=== PATIENT | female | born 1950 | race Caucasian/White ===

== ENCOUNTER 2021-07-31 13:16 | Inpatient (IN) | payer MEDICARE, BC ==
[~2021-07-31] VITALS: Ht 167.6 cm; Wt 59.4 kg
[2021-07-31] MEDS ORDERED: LORAZEPAM 2 MG/1 ML VIAL ONE ×2 (13:28→13:44)
[2021-07-31] MEDS ORDERED: LORAZEPAM 2 MG/1 ML VIAL IM ONE (13:45)
[2021-07-31 13:54] LABS: HEMATOCRIT 44.6 % (31.2-41.9); MEAN CORPUSCULAR HEMOGLOBIN 32.5 uug (24.7-32.8); MEAN CORPUSCULAR VOLUME 97.1 fL (75.5-95.3); PLATELET COUNT (AUTO) 363 K/uL (179-408)
[2021-07-31 14:02] LABS: ETHANOL < 3 MG/DL (0-0)
[2021-07-31 14:06] LABS: ALANINE AMINOTRANSFERASE 19 U/L (14-59); ALKALINE PHOSPHATASE 114 U/L (50-136); ASPARTATE AMINOTRANSFERASE 18 U/L (15-37); BILIRUBIN,DIRECT 0.1 mg/dL (0.0-0.2); BILIRUBIN,TOTAL 0.4 mg/dL (0.2-1.0); CARBON DIOXIDE 24 mmol/L (21-32); CHLORIDE 100 mmol/L (98-107); CREATININE 0.8 mg/dL (0.6-1.3); GLUCOSE 110 mg/dL (74-106); POTASSIUM 3.9 mmol/L (3.5-5.1); TOTAL PROTEIN, SERUM 8.1 g/dL (6.4-8.2); UREA NITROGEN, BLOOD 25 mg/dL (7-18)
[2021-07-31 14:08] LABS: ACETAMINOPHEN < 2.0 ug/mL (10-30)
--- NOTE | 2021-07-31 14:14 | NUR ---
PT'S BEHAVIOR AT THIS TIME IS MORE SUBDUED AT THIS TIME; MORE COOPERATIVE.
[2021-07-31 14:30] LABS: THYROID STIMULATING HORMONE 4.192 mIU/mL (0.358-3.740)
--- NOTE | 2021-07-31 14:47 | NUR ---
Pt is medically cleared, per provider. Contacted [facility], for eval, states will arrive as soon as possible. Pt in semi fowlers position in NAD at this time with Rebecca (RN employment case manager for Dr. Trujillo) at bedside.
--- NOTE | 2021-07-31 15:47 | NUR ---
Art arrived receiving information and background from Rebecca.
[2021-07-31 16:25] LABS: *BILIRUBIN,URIN NEGATIVE (NEGATIVE); *BLOOD, URINE NEGATIVE (NEGATIVE); *CLARITY,URINE CLEAR (CLEAR); *COLOR,URINE YELLOW (YELLOW); *KETONES,URINE NEGATIVE (NEGATIVE); *UROBILINOGEN,URINE 0.2 E.U./dl (NORMAL); LEUKOCYTE ESTERASE ,URINE NEGATIVE (NEGATIVE); NITRITE, URINE NEGATIVE (NEGATIVE); PH,URINE 5.5 (5.0-8.0); UGLUCOSE NEGATIVE (NEGATIVE)
[2021-07-31] MEDS ORDERED: ZIPRASIDONE MESYLATE 20 MG VIAL IM ONE ×2 (16:30→16:33)
[2021-07-31 16:35] LABS: *AMPHETAMINE, URINE NEGATIVE (NEGATIVE); *CANNABINOID, URINE NEGATIVE (NEGATIVE); *COCCAINE, URINE NEGATIVE (NEGATIVE); *OPIATE, URINE NEGATIVE (NEGATIVE); *PHENCYCLIDINE SCREEN,URINE NEGATIVE (NEGATIVE)
--- NOTE | 2021-07-31 16:40 | NUR ---
Pt to be transferred to 138A. Report was called into Jason, at MHU. Pt taken via wheelchair and handed off to MHU staff in stable condition. No S/S of adverse reaction to medication.
[2021-07-31 16:50] VITALS: BP 146/81
[2021-07-31] MEDS ORDERED: MAG HYDROX/AL HYDROX/SIMETH 30 ML LIQUID UDC PO PRN (17:00)
[2021-07-31] MEDS ORDERED: LORAZEPAM 0.5 MG TABLET PO PRN (17:00)
--- NOTE | 2021-07-31 17:53 | NUR ---
ADMISSION NOTE: Patient admitted to the MHU room 138-A from the ER in a wheelchair accompanied by HELP DESK CONSULTANT. Patient's belongings inventoried with patient. Patient oriented to the unit rules and policies. Patient provided with patient's rights handbook and 5150 hold advisement. Upon arrival to the unit, patient is agitated, aggressive, verbally abusive to staff, and is uncooperative with the admission process. Patient is yelling and cursing at staff and is refusing to sign admission paperwork. Patient is uncooperative with assessment and is unable to provide information at this time. For collateral information, this freelance writer spoke with patient's niece, Mae ([phone]). Mae stated patient has been drinking alcohol but other than Dementia does not have other pertinent medical history and does not take any medications. Mae stated patient received COVID vaccines but has not had the Flu vaccine this season or Pneumococcal vaccine and would like patient to receive these. Dr. Trujillo notified of patient's admission. Nadege Santillan NP, notified of patient's admission
--- NOTE | 2021-07-31 18:55 | NUR ---
Nadege Santillan NP, notified of patient's admission. Patient noted with redness and white discharge in right eye. Orders given for ciprofoxacin eye drops. Orders noted and carried out.
[2021-07-31 20:00] VITALS: BP 139/65
[2021-07-31] MEDS: CIPROFLOXACIN 0.3% OPHT DROP 2.5 ML BOTTLE RIGHTEYE SCH ×2 (21:59→22:31)
--- NOTE | 2021-08-01 01:17 | NUR ---
Received to care, up in lm chair, confused, and resistive to care. Cipro eyedrops administered, at bedtime. Assisted to bathroom, and bed, around 2200, with bed alarm, on for safety. As of now, she remains asleep. No distress, noted. Will continue to monitor.
[2021-08-01] MEDS: LORAZEPAM 1 MG TABLET PO PRN ×3 (04:23→20:04)
--- NOTE | 2021-08-01 05:05 | NUR ---
Pt has been up, since around 0330 AM. She is very confused and agitated. Verbally abusive, difficult to redirect. She was toileted. and assisted with a shower, and given PRN ativan, at 0423. She had an unsteady gait, so she was placed in the lm chair, for safety. As of now, she continues to be agitated, and verbally abusive. Has no insight into her condition. PO fluids were given, Monitored closely, for safety.
[2021-08-01 07:30] VITALS: BP 138/90
[2021-08-01 07:47] LABS: BILIRUBIN,TOTAL 0.5 mg/dL (0.2-1.0); CREATININE 0.8 mg/dL (0.6-1.3); POTASSIUM 3.4 mmol/L (3.5-5.1); TOTAL PROTEIN, SERUM 7.8 g/dL (6.4-8.2)
[2021-08-01] MEDS: CIPROFLOXACIN 0.3% OPHT DROP 2.5 ML BOTTLE RIGHTEYE SCH ×4 (08:17→20:50)
--- NOTE | 2021-08-01 08:30 | NUR ---
Firearms Report: Hydroelectric Station Operator completed and submitted a [employer] firearms report for 5150 grave disability certifications. A copy of report has been placed in patient chart.
[2021-08-01] MEDS ORDERED: PNEUMOCOCCAL 23-VAL P-SAC VAC 0.5 ML VIAL IM ONE (09:00)
[2021-08-01] MEDS ORDERED: INFLUENZA VACCINE 2021-2022 0.5 ML DISP.SYRIN IM ONE (09:00)
[2021-08-01] MEDS ORDERED: POTASSIUM CHLORIDE 20 MEQ TAB.PRT.SR PO ONE (09:15)
[2021-08-01] MEDS ORDERED: POTASSIUM CHLORIDE 20 MEQ POWDER PACKET PO ONE (09:45)
--- NOTE | 2021-08-01 11:21 | NUR ---
IRIS [facility]: IRIS spoke with Madalyn ([phone]) patient's City Sanitarian and discussed treatment and discharge plan. Madalyn stated she will coordinate the patient's discharge plan either back home or to a temporary board and care facility.
--- NOTE | 2021-08-01 11:21 | NUR ---
IRIS Initial Discharge Plan: Pt resides at home [address] [place] [address]. IRIS spoke with Madalyn ([phone]) and discussed treatment and discharge plan. Patient will return home upon discharge. IRIS will continue to work with patient, family, and MD to ensure a safe and proper discharge plan.
[2021-08-01] MEDS: GABAPENTIN 100 MG CAPSULE PO SCH ×2 (12:24→16:13)
[2021-08-01 16:00] VITALS: BP 136/80
[2021-08-01] MEDS: risperiDONE 0.25 MG TABLET PO SCH (16:13)
--- NOTE | 2021-08-01 18:36 | NUR ---
Patient in gerichair for safety. Patient confused and agitated. Patient easily irritable and verbally abusive. Patient difficult to redirect. Patient assisted to restroom PRN. PO fluids given. Patient refused Pneumonia/ Flu vaccine x3. Informed patient of the advantages of receiving flu/ pneumonia vaccine and patient refused. Patient hyperverbal, needy and attention seeking. Patient would answer one question from lyric writer then immediately change topic. Patient reoriented and redirected as needed. Will endorse to incoming shift for continuity of care.
[2021-08-01 19:48] VITALS: BP 118/84
[2021-08-01] MEDS: MIRTAZAPINE 15 MG TABLET PO SCH (20:50)
[2021-08-01] MEDS: TEMAZEPAM 7.5 MG CAPSULE PO PRN (22:32)
[2021-08-02] MEDS: LORAZEPAM 1 MG TABLET PO PRN ×2 (00:43→09:57)
--- NOTE | 2021-08-02 06:30 | NUR ---
PATIENT SLEPT FOR APPRO. 3.45 HOURS THROUGH THE NIGHT. SHE WAS NOTED TALKING TO HERSELF AND TO UNSEEN PEOPLE. SHE WAS NOTED CURSING AT STAFF LAST NIGHT. SHE GETS EASILY IRRITABLE. SHE IS CURRENTLY RESTING IN BED. WILL CONTINUE TO MONITOR.
[2021-08-02 07:30] VITALS: BP 144/73
[2021-08-02] MEDS: risperiDONE 0.25 MG TABLET PO SCH (08:04)
[2021-08-02] MEDS: THIAMINE HCL 100 MG TABLET PO SCH (08:04)
[2021-08-02] MEDS: GABAPENTIN 100 MG CAPSULE PO SCH ×3 (08:04→17:15)
[2021-08-02] MEDS: CIPROFLOXACIN 0.3% OPHT DROP 2.5 ML BOTTLE RIGHTEYE SCH ×4 (08:06→20:26)
[2021-08-02] MEDS: risperiDONE 0.5 MG TABLET PO SCH ×2 (12:29→17:15)
[2021-08-02] MEDS ORDERED: risperiDONE 0.25 MG TABLET PO SCH (13:00)
--- NOTE | 2021-08-02 13:23 | NUR ---
GPS: PT RECEIVED TODAY ON JABIER CHAIR FOR SAFETY. PT HYPERVERBAL AND SARCASTIC WHEN BEING ASKED. PT ASKED TO GO OUT ODF THE DOOR BECAUSE SHE HAS TO GET SOME THINGS. RE-ORIENTED PT THAT SHE IS IN MENTAL HEALTH UNIT. PT SEEN BY PSYCHIATRIST TODAY AND ANSWERS BACK TO HER IN A RUDE AND MEAN WAY. PT RE-EDUCATED AND REDIRECTED. GIVEN ATIVAN PT GETTING AGGRESSIVE AND UNCONTROLLABLE BEHAVIOR LIKE SAYING MEAN WORDS. AFTER 30 MINUTES, PT CALMED DOWN AND GOT RELAXED.
[2021-08-02 16:58] VITALS: BP 105/58
--- NOTE | 2021-08-02 18:44 | NUR ---
GPS: PT ASLEEP AT THE JABIER-CHAIR RIGHT NOW SINCE 1529. PT SNORING AND LAYING COMFORTABLY. HYPERVERBAL WHEN AWAKE, TALKS TO SELF AND LIKES TO DRAW A CONVERSATION AND ATTENTION SEEKER. WITH CRYING SPELL EARLY THIS AFTERNOON WHILE HAVING A CONVERSATION WITH ONE OF THE PT. REDIRECTED PT.
[2021-08-02 19:54] VITALS: BP 110/71
[2021-08-02] MEDS: MIRTAZAPINE 15 MG TABLET PO SCH (20:20)
[2021-08-02] MEDS: TEMAZEPAM 7.5 MG CAPSULE PO PRN (23:07)
--- NOTE | 2021-08-03 01:55 | NUR ---
Received patient asleep in chair at the nurses station, but easily arousable. Oral fluids and a snack provided. This patient , upon waking up, was belligerent, demanding, insulting staff and confused. Unable to engage in any meaningful conversation or be redirected. Continuos reorientation needed with little results. The patient is argumentative when job specification writer attempted to explain the situation in order to alleviate possible fears. Patient was combative with staff when being assisted to the bathroom and was incontinent of urine on the floor x2. Eventually,patient was willing to go to her bed. Bed is locked and in the lowest position, night light on, Bed alarm on and safety stratiges are in place to ensure a safe environment. Continuing to monitor patient for behavior escalation and to encourage patient to verbalize needs in a appropriate manner.
[2021-08-03 07:30] VITALS: BP 149/74
[2021-08-03] MEDS: GABAPENTIN 100 MG CAPSULE PO SCH ×3 (08:00→16:00)
[2021-08-03] MEDS: THIAMINE HCL 100 MG TABLET PO SCH (08:00)
[2021-08-03] MEDS: risperiDONE 0.5 MG TABLET PO SCH ×4 (08:00→21:00)
[2021-08-03] MEDS: CIPROFLOXACIN 0.3% OPHT DROP 2.5 ML BOTTLE RIGHTEYE SCH ×4 (08:01→21:00)
[2021-08-03] MEDS: LORAZEPAM 1 MG TABLET PO PRN (11:55)
[2021-08-03] MEDS: ENSURE ENLIVE (VAN) 240 ML LIQUID PO SCH ×2 (12:04→16:01)
[2021-08-03 16:28] VITALS: BP 113/70
[2021-08-03 20:00] VITALS: BP 127/79
[2021-08-03] MEDS ORDERED: MIRTAZAPINE 15 MG TABLET PO SCH (21:00)
[2021-08-04 08:20] VITALS: BP 130/86
[2021-08-04] MEDS: THIAMINE HCL 100 MG TABLET PO SCH (08:26)
[2021-08-04] MEDS: risperiDONE 0.5 MG TABLET PO SCH ×4 (08:26→20:04)
[2021-08-04] MEDS: ENSURE ENLIVE (VAN) 240 ML LIQUID PO SCH ×3 (08:26→16:46)
[2021-08-04] MEDS: GABAPENTIN 100 MG CAPSULE PO SCH ×3 (08:26→16:45)
[2021-08-04] MEDS: CIPROFLOXACIN 0.3% OPHT DROP 2.5 ML BOTTLE RIGHTEYE SCH ×4 (08:27→20:04)
[2021-08-04 16:33] VITALS: BP 119/64
[2021-08-04 20:00] VITALS: BP 109/67
[2021-08-05] MEDS: TEMAZEPAM 7.5 MG CAPSULE PO PRN (00:38)
[2021-08-05] MEDS: LORAZEPAM 1 MG TABLET PO PRN (01:26)
--- NOTE | 2021-08-05 01:38 | NUR ---
Received pt lying in bed, comfortable, no s/s of distress, no complaints of pain. Snacks and water provided at bedtime. Restoril PRN and Ativan PRN offered, pt refused--said she did not need it at the time because she felt was already going to sleep, but took routine HS meds. However, when staff offered to check/change her diaper after a couple of hours, pt refused and was uncooperative with nursing care, screaming, yelling, hitting staff rendering care. Pt claimed that the slightest touch gives her pain and so she could not have her diaper/clothes changed. Staff explained the need for such interventions. Pt continued to be hyperverbal, uncooperative to care and hostile towards roommate. PRN meds administered per MD order and gentle physical handling of pt observed throughout interaction. Pt moved near the nurses station on the lm chair for consistent monitoring.
[2021-08-05 07:30] VITALS: BP 105/73
[2021-08-05] MEDS: CIPROFLOXACIN 0.3% OPHT DROP 2.5 ML BOTTLE RIGHTEYE SCH ×4 (08:05→22:03)
[2021-08-05] MEDS: GABAPENTIN 100 MG CAPSULE PO SCH ×3 (08:05→16:15)
[2021-08-05] MEDS: THIAMINE HCL 100 MG TABLET PO SCH (08:06)
[2021-08-05] MEDS: risperiDONE 0.5 MG TABLET PO SCH ×4 (08:06→22:04)
[2021-08-05] MEDS: ENSURE ENLIVE (VAN) 240 ML LIQUID PO SCH ×3 (08:06→16:15)
[2021-08-05 15:51] VITALS: BP 162/82
[2021-08-05 20:00] VITALS: BP 129/82
[2021-08-05] MEDS ORDERED: GABAPENTIN 300 MG CAPSULE PO SCH (21:00)
[2021-08-06] MEDS: MAGNESIUM HYDROXIDE 30 ML LIQUID UDC PO PRN (06:40)
--- NOTE | 2021-08-06 06:51 | NUR ---
Patient slept for approx 9.00 hrs through the night. she is noted easily irritable and hard to redirect. According to I and O records, patient has not had a BM in 4 days. However, her Intake has been poorly. patient in no distress. MOM PO PRN was given with prune juice. will monitor for BM.
[2021-08-06 08:13] VITALS: BP 142/69
[2021-08-06] MEDS: risperiDONE 0.5 MG TABLET PO SCH ×2 (08:32→12:38)
[2021-08-06] MEDS: THIAMINE HCL 100 MG TABLET PO SCH (08:32)
[2021-08-06] MEDS: GABAPENTIN 100 MG CAPSULE PO SCH ×3 (08:32→16:43)
[2021-08-06] MEDS: CIPROFLOXACIN 0.3% OPHT DROP 2.5 ML BOTTLE RIGHTEYE SCH ×4 (08:33→21:00)
[2021-08-06] MEDS: ENSURE ENLIVE (VAN) 240 ML LIQUID PO SCH ×3 (09:00→17:48)
--- NOTE | 2021-08-06 11:44 | NUR ---
IRIS Urology PhysicianTest Car Driver: IRIS spoke with Madalyn ([phone]) patient's Urology Physician and discussed treatment and discharge plan. Madalyn stated she will coordinate the patient's discharge to a temporary board and care facility. Madalyn stated she would inform SW once she was able to find a placement for patient. Madalyn stated she would like patient's eating to improve before discharge.
[2021-08-06] MEDS: LORAZEPAM 1 MG TABLET PO PRN ×2 (12:38→16:43)
[2021-08-06 16:15] VITALS: BP 106/60
[2021-08-06] MEDS: risperiDONE 1 MG TABLET PO SCH (16:43)
--- NOTE | 2021-08-06 18:38 | NUR ---
Patient is alert and oriented to name only. She is uncooperative, verbally abusive to staff, at times strikes out at staff, and occasionally speaks to unseen others. Patient requires frequent redirection and reality orientation. Patient was provided with Ativan 1 mg PO PRN for agitated and threatening behavior with effect. Patient requires maximum assistance with meals, ambulation, toileting, and care. Patient is uncooperative with staff. Patient's bed is in low and locked position with bed alarm on. Patient is able to tolerate food and fluids.
[2021-08-06 19:54] VITALS: BP 118/64
[2021-08-06] MEDS ORDERED: risperiDONE 1 MG TABLET PO SCH (21:00)
[2021-08-06] MEDS: MIRTAZAPINE 15 MG TABLET PO SCH (21:53)
[2021-08-07] MEDS: MAGNESIUM HYDROXIDE 30 ML LIQUID UDC PO PRN (05:08)
--- NOTE | 2021-08-07 06:50 | NUR ---
Patient slept for approx 9.15 hrs through the night. she was given ensure plus x2 last night She was given MOM for constipation. MOM was effective, she had a small soft BM. she is also noted less irritable less aggressive, less hyperverbal. she is able to accept care. Will continue to monitor.
[2021-08-07 07:30] VITALS: BP 123/90
[2021-08-07] MEDS: THIAMINE HCL 100 MG TABLET PO SCH (08:39)
[2021-08-07] MEDS: CIPROFLOXACIN 0.3% OPHT DROP 2.5 ML BOTTLE RIGHTEYE SCH ×4 (08:39→20:45)
[2021-08-07] MEDS: risperiDONE 1 MG TABLET PO SCH ×2 (08:39→17:16)
[2021-08-07] MEDS: GABAPENTIN 100 MG CAPSULE PO SCH ×3 (08:39→17:16)
[2021-08-07] MEDS: LORAZEPAM 1 MG TABLET PO PRN ×3 (08:39→20:44)
[2021-08-07] MEDS: ENSURE ENLIVE (VAN) 240 ML LIQUID PO SCH ×3 (08:39→17:16)
--- NOTE | 2021-08-07 08:45 | NUR ---
GPS: PT RECEIVED ON JABIER-CHAIR FOR SAFETY. PT YELLING " I WANNA GO TO TRAIN STATION", "WHAT'S YOUR PROBLEM", WHY CAN'T YOU HELP ME?" PT TALKS TO HERSELF. ADMINISTERED ATIVAN PO FOR ANXIETY AND AGITATION. WILL MONITOR PT.
[2021-08-07] MEDS ORDERED: MAGNESIUM CITRATE 296 ML BOTTLE PO ONE (15:15)
[2021-08-07 16:09] VITALS: BP 121/78
--- NOTE | 2021-08-07 17:07 | NUR ---
GPS: MAGNESIUM CITRATE WAS NOT ADMINISTERED DUE TO PT WENT TO RESTROOM AND HAD A BOWEL MOVEMENT, WITH SOFT CONSISTENCY, MEDIUM AMOUNT. ENCOURAGED PT TO INCREASE FOOD AND FLUID INTAKE TO PREVENT DEHYDRATION.
[2021-08-07] MEDS: MIRTAZAPINE 15 MG TABLET PO SCH (20:45)
[2021-08-07] MEDS: risperiDONE 2 MG TABLET PO SCH (20:45)
[2021-08-07] MEDS ORDERED: risperiDONE 1 MG TABLET PO SCH (21:00)
[2021-08-07 22:52] VITALS: BP 135/82
--- NOTE | 2021-08-08 01:35 | NUR ---
Received patient at the start of the shift in the lm chair. The patient remains very confused and unable to answer question or follow directions easily. This grant writer encouraged and provided fluids orally with took max assistance. Patient is able to swallow but needs a lot of oversight and time. Snacks were also provided and patient was able to finish most of it. After awhile, this patient was put to bed at which time proceeded to strike out at the staff providing care. Patient is being turned in order to keep skin intact, but yells and fights this process. This grant writer is unable to engage in any meaningful conversation with this patient. Safety Stratiges are in place and grant writer will continue to encourage fluids and food when possible.
[2021-08-08 07:30] VITALS: BP 123/70
[2021-08-08] MEDS: THIAMINE HCL 100 MG TABLET PO SCH (08:34)
[2021-08-08] MEDS: GABAPENTIN 100 MG CAPSULE PO SCH ×3 (08:34→16:35)
[2021-08-08] MEDS: risperiDONE 1 MG TABLET PO SCH ×2 (08:34→16:35)
[2021-08-08] MEDS: ENSURE ENLIVE (VAN) 240 ML LIQUID PO SCH ×3 (08:35→16:36)
[2021-08-08 16:00] VITALS: BP 124/73
--- NOTE | 2021-08-08 16:58 | NUR ---
GPS: Remain confused and disoriented. compliant with meds. assisted with adl's. continue plan of care.
[2021-08-08 20:02] VITALS: BP 108/72
[2021-08-08] MEDS: MIRTAZAPINE 15 MG TABLET PO SCH (20:22)
[2021-08-08] MEDS: risperiDONE 2 MG TABLET PO SCH (20:22)
[2021-08-08] MEDS: BENZTROPINE MESYLATE 0.5 MG TABLET PO SCH (20:22)
[2021-08-09 07:30] VITALS: BP 104/63
[2021-08-09] MEDS ORDERED: risperiDONE 1 MG TABLET PO SCH (09:00)
[2021-08-09] MEDS: ENSURE ENLIVE (VAN) 240 ML LIQUID PO SCH ×3 (09:19→17:18)
[2021-08-09] MEDS: risperiDONE 0.5 MG TABLET PO SCH ×5 (09:19→22:30)
[2021-08-09] MEDS: BENZTROPINE MESYLATE 0.5 MG TABLET PO SCH ×6 (09:19→22:30)
[2021-08-09] MEDS: THIAMINE HCL 100 MG TABLET PO SCH (09:19)
[2021-08-09] MEDS: GABAPENTIN 100 MG CAPSULE PO SCH ×3 (12:59→22:30)
[2021-08-09] MEDS ORDERED: GABAPENTIN 100 MG CAPSULE PO SCH (13:00)
--- NOTE | 2021-08-09 14:44 | NUR ---
Gps/Cathode Maker- Remains up in her lm-chair, repositioned for comfort, tends to hyperextend her neck back , supported on a pillow. Needed encouragement and prompted to feed self.Compliant with her routine meds.
[2021-08-09 16:00] VITALS: BP 125/62
[2021-08-09 20:08] VITALS: BP 118/60
[2021-08-09] MEDS: MIRTAZAPINE 15 MG TABLET PO SCH ×2 (21:59→22:30)
--- NOTE | 2021-08-10 04:07 | NUR ---
Received to care, lying bed, asleep, but easy to awaken, but fell right back to sleep. Bedtime medications, snack, and fluids given at 2230, with assist, when she awoke. Continues to appear to have a rigid neck. As of now, she continues to sleep well. No distress noted. Will continue to monitor closely.
[2021-08-10 07:30] VITALS: BP 97/62
[2021-08-10] MEDS: ENSURE ENLIVE (VAN) 240 ML LIQUID PO SCH ×3 (08:28→17:40)
[2021-08-10] MEDS: BENZTROPINE MESYLATE 0.5 MG TABLET PO SCH ×4 (10:41→21:23)
[2021-08-10] MEDS: risperiDONE 0.5 MG TABLET PO SCH ×3 (10:41→17:39)
[2021-08-10] MEDS: THIAMINE HCL 100 MG TABLET PO SCH (10:41)
[2021-08-10] MEDS: GABAPENTIN 100 MG CAPSULE PO SCH (12:33)
--- NOTE | 2021-08-10 13:30 | NUR ---
Gps/Geophysical Support Specialist- Assisted with her lunch, patient was fed, not initiating to feed self, fluid offered and encouraged . Confused, disoriented, speech clear but incoherent. Safety reviewed.Routine pm meds. administered with apple sauce.
--- NOTE | 2021-08-10 15:11 | NUR ---
Gps/Chance Brothers (Neuro) came in to see patient, informed , patient needed assist with meals, not initiating as well as decreased mobility. Orders received.
[2021-08-10 16:53] VITALS: BP 105/62
--- NOTE | 2021-08-10 18:00 | NUR ---
Gps/Dyno Technician- Fully awake , constantly talking incoherent speech, in no sign of any distress, HOB elevated, w/ her head/neck properly supported. with pillows Assisted with dinner, was able to drink her ensure, juice offered, able to finished apple sauce.
--- NOTE | 2021-08-10 18:15 | NUR ---
Gps/Installer Interior Assemblies- Dr Trujillo called, orders received, to decreased Risperdal to 1 mg po q HS . Also noted labs previously ordered by Dr Brothers ,not drawn yet, lab. was called , they are short of staff Micro Computer Specialist , wont be drawn till 2200 .
[2021-08-10 19:51] VITALS: BP 101/56
--- NOTE | 2021-08-10 20:30 | NUR ---
Order received from Dr Trujillo to d/c Gabapentin, and Remeron. Also to change labs to stat, as they hadn't been done, since being ordered, earlier, today. Lab was called, and they stated the towel stretcher would not be in until 2200. Lab acknowledged receiving stat order, and would pass on, when senior environmental technician arrived.
[2021-08-10] MEDS: risperiDONE 1 MG TABLET PO SCH (21:23)
--- NOTE | 2021-08-10 22:00 | NUR ---
Received to care, at start of shift, asleep, but east to awaken. Remains confused, but follows simple commands, and talking. Po fluids (water, and juice),and pudding was fed to her, and she tolerated well, along with her bedtime medications. Her neck and lower extremities continue to be rigid, and stiff. Will continue to monitor closely.
[2021-08-10 22:25] LABS: HEMATOCRIT 38.4 % (31.2-41.9); MEAN CORPUSCULAR HEMOGLOBIN 31.8 uug (24.7-32.8); MEAN CORPUSCULAR VOLUME 96.7 fL (75.5-95.3); PLATELET COUNT (AUTO) 254 K/uL (179-408)
[2021-08-10 22:28] LABS: CREATININE 1.1 mg/dL (0.6-1.3); POTASSIUM 4.5 mmol/L (3.5-5.1)
--- NOTE | 2021-08-10 22:30 | NUR ---
Lab results received, and reported to Dr Trujillo. WBC 15.2, BUN 35, CR 1.1, NA 146. She suggested staff to encourage PO fluids, as pt was alert, and taking fluids. She ordered a repeat BMP, for the AM, and she also ordered a urinalysis and urine culture. She suggested the AM shift follow up with the [facility] linseed oil temperer, after receiving AM lab results.
[2021-08-10 22:33] LABS: BILIRUBIN,TOTAL 0.2 mg/dL (0.2-1.0)
[2021-08-10 22:34] LABS: BILIRUBIN,DIRECT 0.1 mg/dL (0.0-0.2); TOTAL PROTEIN, SERUM 6.8 g/dL (6.4-8.2)
--- NOTE | 2021-08-11 00:30 | NUR ---
PO fluids were given (700 ml), total, so far. staff attempted to take her to the bathroom, but she was too weak and stiff, in the legs, to ambulate. Bedpan was offered, but she was unable to void, but her diaper was extremely wet, after taking fluids. Will attempt to obtain a urine specimen, later in the night.
--- NOTE | 2021-08-11 06:50 | NUR ---
Pt was placed on the bedpan, but her diaper was already wet, and no urine was obtained. Will endorse to AM shift, to follow up.Total of 750 ML of fluids were given last night. Awaiting lab to redraw BMP. No distress noted..
[2021-08-11 07:30] VITALS: BP 158/62
--- NOTE | 2021-08-11 07:30 | NUR ---
CHEST X RAY DONE EARLIER IS NEGATIVE. "THE LUNGS ARE CLEAR, NO ACUTE DISEASE". WILL CONTINUE TO MONITOR. Addendum: 08/12/21 at 0441 by ALOK BURGOS RN WRONG TIME.
[2021-08-11 08:04] LABS: POTASSIUM 4.4 mmol/L (3.5-5.1)
--- NOTE | 2021-08-11 08:15 | NUR ---
Gps/Public Address Announcer- Good kami-care encouraged, rendered, noted , purlplish circular spot left groin noted ,possible diaper use . , pressure relief . Kept skin dry and clean
[2021-08-11 08:27] LABS: HEMATOCRIT 38.9 % (31.2-41.9); MEAN CORPUSCULAR HEMOGLOBIN 31.5 uug (24.7-32.8); MEAN CORPUSCULAR VOLUME 97.1 fL (75.5-95.3); PLATELET COUNT (AUTO) 276 K/uL (179-408)
[2021-08-11 08:39] LABS: BILIRUBIN,DIRECT 0.1 mg/dL (0.0-0.2); BILIRUBIN,TOTAL 0.5 mg/dL (0.2-1.0); TOTAL PROTEIN, SERUM 6.9 g/dL (6.4-8.2)
[2021-08-11] MEDS: THIAMINE HCL 100 MG TABLET PO SCH (08:49)
[2021-08-11] MEDS: ENSURE ENLIVE (VAN) 240 ML LIQUID PO SCH ×3 (08:49→17:45)
[2021-08-11] MEDS: BENZTROPINE MESYLATE 0.5 MG TABLET PO SCH ×2 (08:49→17:46)
[2021-08-11] MEDS: risperiDONE 0.5 MG TABLET PO SCH ×3 (08:50→17:46)
[2021-08-11] MEDS: ACETAMINOPHEN 325 MG TABLET PO PRN ×2 (08:50→20:11)
[2021-08-11 08:53] LABS: *BILIRUBIN,URIN NEGATIVE (NEGATIVE); *BLOOD, URINE NEGATIVE (NEGATIVE); *CLARITY,URINE CLEAR (CLEAR); *COLOR,URINE YELLOW (YELLOW); *KETONES,URINE NEGATIVE (NEGATIVE); *UROBILINOGEN,URINE 0.2 E.U./dl (NORMAL); LEUKOCYTE ESTERASE ,URINE NEGATIVE (NEGATIVE); NITRITE, URINE NEGATIVE (NEGATIVE); PH,URINE 6.5 (5.0-8.0); UGLUCOSE NEGATIVE (NEGATIVE)
--- NOTE | 2021-08-11 09:18 | NUR ---
Gps/Collar Sewer- Called Dr Pepe , reviewed and reported lab. result s( BUN 30, creat 1.0, UA result)Informed of elevated temp. 100.4 oral , and tylenol 650 mg po was administered crushed with apple sauce. Also informed patient was catheterized in/out 700 ml clear yellow tomasa urine, and specimen was sent to lab. results reported. Patient was assisted with her breakfast by CONTACT FINGER ASSEMBLER, no coughing noted, able to eat 75% of her breakfast and drank her ensure .Dr Trujillo checked condition of patient this am, orders received, informed of Dr Pepe will check on patient.
--- NOTE | 2021-08-11 10:16 | NUR ---
Gps/Webbing Inspector- Dr Pepe in to see patient , reviewed labs. X_ray ordered portable. Will continue to monitor fever /vital signs.
--- NOTE | 2021-08-11 10:22 | NUR ---
Gps/Navigation Teacher- Stiffness to her extremities noted , 2 staff needed to assist in repositioning. screams when being reposition, unable verbalized pain level , repositioned for comfort.
--- NOTE | 2021-08-11 10:32 | NUR ---
Gps/Vertical Contour Band Saw Operator- Temp. rechecked 98.9 oral
[2021-08-11 16:00] VITALS: BP 111/57
--- NOTE | 2021-08-11 17:58 | NUR ---
Gps/Renewable Energy Consultant- tempt. 98 axillary , continue to offered fluids , keeping HOB elevated.
--- NOTE | 2021-08-11 19:30 | NUR ---
CHEST X RAY DONE EARLIER IS NEGATIVE. "THE LUNGS ARE CLEAR, NO ACUTE DISEASE". WILL CONTINUE TO MONITOR
[2021-08-11 20:00] VITALS: BP 113/60
[2021-08-11] MEDS: risperiDONE 1 MG TABLET PO SCH (20:11)
--- NOTE | 2021-08-11 20:30 | NUR ---
Received patient in her room in bed. she is noted awake, afebrile in no distress, V/S stable. she is noted confused, with disorganized speech, talking to herself, staring at the wall, unable to make eye contact, she is unable to have a meaningful conversation with this policy writer. Patient was given PO fluids and snacks. she was able to drink 2 cups of water plus vanilla pudding and apple sauce. Her medications were given crushed in apple sauce. Reality checks was provided. she is reassured for her safety. Safety and fall precaution are in place. will continue to monitor closely.
[2021-08-12] MEDS: ACETAMINOPHEN 325 MG TABLET PO PRN (04:18)
[2021-08-12] MEDS: MAGNESIUM HYDROXIDE 30 ML LIQUID UDC PO PRN (04:18)
--- NOTE | 2021-08-12 04:19 | NUR ---
Patient noted awake in no distress. V/S: b/p 110/63 pulse 98 bpm respiration 18bpm and temperature 99.4F. Tylenol 650 mg PO PRN was given. It was also noted than patent last BM was on 08/08/21, MOM was also given. will [id number] to monitor closely.
[2021-08-12 04:24] VITALS: BP 110/63
[2021-08-12 07:17] LABS: HEMATOCRIT 38.3 % (31.2-41.9); MEAN CORPUSCULAR HEMOGLOBIN 31.6 uug (24.7-32.8); MEAN CORPUSCULAR VOLUME 95.9 fL (75.5-95.3); PLATELET COUNT (AUTO) 296 K/uL (179-408)
[2021-08-12 07:27] LABS: MAGNESIUM 2.6 mg/dL (1.8-2.4); PHOSPHOROUS 3.1 mg/dL (2.5-4.9); POTASSIUM 4.1 mmol/L (3.5-5.1)
[2021-08-12 07:40] VITALS: BP 123/64
--- NOTE | 2021-08-12 08:30 | NUR ---
Gps/Public Interviewer- Patient on her lm-chair by the Nurses station during the initial rounds, in no distress, mumbles when asked hows she's doing .HOB elevated assisted with her breakfast, Stiffness to her neck, repositioned and supported on a pillow
[2021-08-12] MEDS: ENSURE ENLIVE (VAN) 240 ML LIQUID PO SCH (08:51)
[2021-08-12] MEDS: THIAMINE HCL 100 MG TABLET PO SCH (09:00)
[2021-08-12] MEDS: risperiDONE 0.5 MG TABLET PO SCH (09:00)
[2021-08-12] MEDS: BENZTROPINE MESYLATE 0.5 MG TABLET PO SCH (09:00)
--- NOTE | 2021-08-12 11:00 | NUR ---
Gps/Towel Inspector- Dr Trujillo was informed of the discharge plan to MS floor as ordered by Dr Lyles for DX of Leukocytosis
--- NOTE | 2021-08-12 11:00 | NUR ---
Gps/Medical Technologist Blood Bank- Lamin Gonzalez DNP was in to see patient claimed discussed with Dr Lyles have patient transfered to Medical floor DX leukocytosis.
--- NOTE | 2021-08-12 12:11 | NUR ---
Gps/Neon Technician- Report was given to Lupis Cruz, patient assigned to room #310. Discharged via lm-chair, in nosign of any distress.All belongings was given back to patient.
[2021-08-12] MEDS ORDERED: risperiDONE 0.25 MG TABLET PO SCH (13:00)
[2021-08-12] MEDS ORDERED: LORA-259 PO (13:57)
[2021-08-12] MEDS ORDERED: LACT-246 PO (13:57)
[2021-08-12] MEDS ORDERED: TEMA15CA PO (13:57)
[2021-08-12] MEDS ORDERED: MAGN400O6 PO (13:57)
[2021-08-12] MEDS ORDERED: RISP1TAB97 PO (13:57)
[2021-08-12] MEDS ORDERED: RISP0.5T65 PO (13:57)
[2021-08-12] MEDS ORDERED: MAG355OR18 PO (13:57)
[2021-08-12] MEDS ORDERED: ACET-2154 PO (13:57)
[2021-08-12] MEDS ORDERED: THIA100T74 PO (13:57)
[2021-08-12] MEDS ORDERED: BENZ0.5T43 PO (13:57)
--- NOTE | 2021-08-12 14:37 | NUR ---
Gps/Package Line Relief Operator- Called Eamon Wall) front desk person, left message was informed patient was transfered to medical floor for higher level of care # room 310
--- NOTE | 2021-08-12 15:00 | NUR ---
Gps/Operations Professional- Patient discharged to M/S with her eye glasses with her
== END 2021-08-12 12:17 | disposition short-term general hospital (02) | DRG 885 ==
LOC: ER 13:16 → GPS 16:28
PROVIDERS: ADMIT Psychiatry & Neurology Psychosomatic Medicine; ATTEND Nurse Practitioner Acute Care
DX: F25.0 Schizoaffective disorder, bipolar type (principal); F03.91 Unspecified dementia, unspecified severity, with behavioral disturbance; F03.90 Unspecified dementia, unspecified severity, without behavioral disturbance, psychotic disturbance, mood disturbance, and anxiety; E87.6 Hypokalemia; F10.10 Alcohol abuse, uncomplicated; Y90.0 Blood alcohol level of less than 20 mg/100 ml; Z20.822 Contact with and (suspected) exposure to COVID-19; D72.829 Elevated white blood cell count, unspecified; I67.2 Cerebral atherosclerosis; Z82.49 Family history of ischemic heart disease and other diseases of the circulatory system; Z91.14 Patient's other noncompliance with medication regimen; F60.9 Personality disorder, unspecified; R94.6 Abnormal results of thyroid function studies
CPT/HCPCS: 36415; 70030-TC; 70450; 71045; 83735; 84100; 84443; 85025; 87086; 90732; 93005; 97161; A4663; G0480; J2060; J3486

== ENCOUNTER 2021-08-12 13:24 | Inpatient (IN) | payer MEDICARE, BC ==
[~2021-08-12] VITALS: Ht 167.6 cm; Wt 59.4 kg
--- NOTE | 2021-08-12 12:00 | NUR ---
received patient from MHU, patient is awake responds to name at times. patient is confused, not able to follow commands at this time and not able to make needs known. Patient noted with weakness to bilateral lower extremities, skin is intact. patient is unable to answer admitting questionnaire d/t cognitive impairment at this time. right f/a 20g placed, iv site patent and infusing 0.45 ns at 75cc. Lamin LINEN GRADER in unit and aware of admission, medications reconciled. belonging inventory completed. patient resting in bed at this time.
[2021-08-12] MEDS ORDERED: LACT-246 PO (13:57)
[2021-08-12] MEDS ORDERED: THIA100T74 PO (13:57)
[2021-08-12] MEDS ORDERED: BENZ0.5T43 PO (13:57)
[2021-08-12] MEDS ORDERED: RISP1TAB97 PO (13:57)
[2021-08-12] MEDS ORDERED: LORA-259 PO (13:57)
[2021-08-12] MEDS ORDERED: MAG355OR18 PO (13:57)
[2021-08-12] MEDS ORDERED: ACET-2154 PO (13:57)
[2021-08-12] MEDS ORDERED: RISP0.5T65 PO (13:57)
[2021-08-12] MEDS ORDERED: MAGN400O6 PO (13:57)
[2021-08-12] MEDS ORDERED: TEMA15CA PO (13:57)
[2021-08-12] MEDS ORDERED: ZOLPIDEM 5 MG TABLET PO PRN (14:00)
[2021-08-12] MEDS ORDERED: MAGNESIUM HYDROXIDE 30 ML LIQUID UDC PO PRN (14:00)
[2021-08-12] MEDS ORDERED: ONDANSETRON 4 MG/2 ML VIAL IV PRN (14:00)
[2021-08-12] MEDS ORDERED: LORAZEPAM 1 MG TABLET PO PRN ×2 (14:15→22:00)
[2021-08-12] MEDS: ENOXAPARIN SODIUM 40 MG/0.4 ML DISP.SYRIN SQ SCH (15:23)
--- NOTE | 2021-08-12 15:30 | NUR ---
patient noted with temp. 100.5, Lamin WAGGONER aware, cooling measures initiated.
[2021-08-12] MEDS: IV 1/2NS 1000 ML 1,000 ML IV PRN (15:41)
[2021-08-12 16:00] VITALS: BP 113/70
[2021-08-12] MEDS: BENZTROPINE MESYLATE 0.5 MG TABLET PO SCH (16:24)
[2021-08-12] MEDS: ACETAMINOPHEN 325 MG TABLET PO PRN (16:26)
[2021-08-12] MEDS ORDERED: risperiDONE 0.5 MG TABLET PO SCH (17:00)
[2021-08-12] MEDS ORDERED: Medication Not On Formulary EA (Lactose-Reduced Food (Ensure Enlive) 237 ML) PO SCH (17:00)
--- NOTE | 2021-08-12 17:00 | NUR ---
RISPERDAL HELD, PATIENT IS DROWSY.
[2021-08-12] MEDS: ENSURE ENLIVE (VAN) 240 ML LIQUID PO SCH (17:50)
--- NOTE | 2021-08-12 19:35 | NUR ---
Received patient in bed. Noted to yell and hit during hygiene care. Continues with confusion, incoherent speech, alert to self. Patient is calm and fell asleep after hygiene care. No facial grimacing, no SOB noted. On RA. IV to right FA infusing 1/2 NS at 75ml/hr. Needs assessed and attended. Safety measures initiated. Call light within reach.
--- NOTE | 2021-08-12 20:15 | NUR ---
Received a call from Dr. Trujillo, psychiatrist, with orders to change Risperdal to 0.25mg QID, Risperdal 0.5mg daily PRN. Change Ativan to 0.5 mg every 6 hours PRN and DC Ambien. Also, requested for DR. Gonzalez to consider a rapid COVID test. Dr. Gonzalez made aware with new orders for rapid test. Rapid COVID test completed and sent to lab.Patient tolerated procedure well.
[2021-08-12 20:40] VITALS: BP 125/52
[2021-08-12] MEDS ORDERED: TEMAZEPAM 15 MG CAPSULE PO PRN (21:00)
[2021-08-12] MEDS ORDERED: risperiDONE 1 MG TABLET PO SCH (21:00)
[2021-08-12] MEDS: PIPERACILLIN SODIUM/TAZOBACTAM 3.375 G in IV DEXTROSE 5% 50 ML IV SCH (21:19)
[2021-08-12] MEDS: Z GUARD REMEDY PASTE 57 GM TUBE TOP SCH (21:20)
[2021-08-12] MEDS ORDERED: risperiDONE 0.25 MG TABLET PO PRN (22:00)
[2021-08-13 05:09] VITALS: BP 140/96
[2021-08-13] MEDS: PIPERACILLIN SODIUM/TAZOBACTAM 3.375 G in IV DEXTROSE 5% 50 ML IV SCH (05:41)
[2021-08-13] MEDS: IV 1/2NS 1000 ML 1,000 ML IV PRN ×2 (05:41→19:11)
[2021-08-13] MEDS ORDERED: TEMAZEPAM 7.5 MG CAPSULE PO PRN (06:30)
[2021-08-13 06:52] LABS: HEMATOCRIT 35.8 % (31.2-41.9); MEAN CORPUSCULAR HEMOGLOBIN 31.6 uug (24.7-32.8); MEAN CORPUSCULAR VOLUME 97.4 fL (75.5-95.3); PLATELET COUNT (AUTO) 328 K/uL (179-408)
--- NOTE | 2021-08-13 06:56 | NUR ---
Patient remains confused with incoherent speech. Intermittently asleep. urine collected for analysis. Done through in and out catheterization as ordered by Dr. Avilez. Protonix changed to IV due to patient confusion and ST eval ordered. All needs assessed and attended. Call light within reach
[2021-08-13] MEDS ORDERED: PANTOPRAZOLE SODIUM 40 MG TABLET.DR PO SCH (07:00)
[2021-08-13 07:20] LABS: CREATININE 0.9 mg/dL (0.6-1.3); MAGNESIUM 2.4 mg/dL (1.8-2.4)
[2021-08-13] MEDS: ENSURE ENLIVE (VAN) 240 ML LIQUID PO SCH ×3 (08:00→19:04)
[2021-08-13] MEDS ORDERED: risperiDONE 0.5 MG TABLET PO SCH (09:00)
[2021-08-13] MEDS: Z GUARD REMEDY PASTE 57 GM TUBE TOP SCH ×2 (09:00→21:07)
[2021-08-13] MEDS: THIAMINE HCL 100 MG TABLET PO SCH (09:59)
--- NOTE | 2021-08-13 10:00 | NUR ---
Received patient from on floor WAREHOUSE HELPER. Patient is AxOx1 with incoherent speech and confusion. Pt. is currently on Room Air saturating at 95-96%. NKA, FULL CODE, [facility] SOFT DIET. Bed placed in lowest position with call light within reach.
[2021-08-13] MEDS: BENZTROPINE MESYLATE 0.5 MG TABLET PO SCH ×3 (10:01→16:07)
[2021-08-13] MEDS: PANTOPRAZOLE SODIUM 40 MG VIAL IV SCH (10:02)
[2021-08-13 11:18] VITALS: BP 123/78
[2021-08-13] MEDS: risperiDONE 0.5 MG TABLET PO SCH ×2 (12:17→16:07)
[2021-08-13] MEDS: ENOXAPARIN SODIUM 40 MG/0.4 ML DISP.SYRIN SQ SCH (13:21)
[2021-08-13] MEDS: PIPERACILLIN SODIUM/TAZOBACTAM 3.375 G in IV DEXTROSE 5% 100 ML IV SCH ×2 (13:23→21:06)
[2021-08-13] MEDS: ACETAMINOPHEN 325 MG TABLET PO PRN (14:55)
[2021-08-13 15:17] VITALS: BP 114/92
--- NOTE | 2021-08-13 16:20 | NUR ---
Patient temperature at 99.2. Cooling measures provided; 2 ice packs under each axilla and cool towels, and Tylenol were administered. Bed left in lowest position with call light within reach. Patient showing no signs of distress.
--- NOTE | 2021-08-13 19:05 | NUR ---
Patient dealt with low grade fever most of the shift and performed cooling measures to lower temperature. Patient exhibits altered mental status AxOx1. Patient showed no signs of distress during shift. Urine culture still pending. Meds administered crushed with apple sauce due to level of mental alertness. Will endorse to oncoming shift boss.
--- NOTE | 2021-08-13 19:30 | NUR ---
Received patient lying in bed. Asleep at this time. Appears calm and comfortable. In no apparent distress. No signs or symptoms of pain or SOB. IV site on left FA and right FA intact and patent. IVF infusing on left FA. Needs assessed and anticipated to. Safety measure initiated and call light within reached.
[2021-08-13 20:10] VITALS: BP 124/73
[2021-08-14 04:10] VITALS: BP 93/76
[2021-08-14] MEDS: PIPERACILLIN SODIUM/TAZOBACTAM 3.375 G in IV DEXTROSE 5% 100 ML IV SCH ×3 (05:09→21:01)
--- NOTE | 2021-08-14 05:50 | NUR ---
Patient slept through out the shift. Arouse to tactile stimuli. In no apparent distress. No signs or symptoms of pain or SOB. IV site on left FA and right FA intact and patent. IVF infusing. No adverse reaction noted from IV antibiotic. Needs assessed and attended to. Safety measure maintained and call light within reached.
--- NOTE | 2021-08-14 07:44 | NUR ---
Received patient from film processing shift supervisor nurse. Patient exhibiting no signs of pain or distress. IV site intact and patent. Bed left in the lowest position with call light within reach.
[2021-08-14] MEDS: ENSURE ENLIVE (VAN) 240 ML LIQUID PO SCH ×3 (08:12→18:46)
[2021-08-14] MEDS: Z GUARD REMEDY PASTE 57 GM TUBE TOP SCH ×2 (08:13→21:26)
[2021-08-14] MEDS: risperiDONE 0.5 MG TABLET PO SCH ×3 (08:13→16:22)
[2021-08-14] MEDS: THIAMINE HCL 100 MG TABLET PO SCH (08:13)
[2021-08-14] MEDS: PANTOPRAZOLE SODIUM 40 MG VIAL IV SCH (08:13)
[2021-08-14] MEDS: BENZTROPINE MESYLATE 0.5 MG TABLET PO SCH ×3 (08:13→16:22)
[2021-08-14 11:01] LABS: HEMATOCRIT 36.3 % (31.2-41.9); MEAN CORPUSCULAR HEMOGLOBIN 31.5 uug (24.7-32.8); MEAN CORPUSCULAR VOLUME 97.4 fL (75.5-95.3); PLATELET COUNT (AUTO) 409 K/uL (179-408)
[2021-08-14 11:28] VITALS: BP 154/86
[2021-08-14] MEDS: ENOXAPARIN SODIUM 40 MG/0.4 ML DISP.SYRIN SQ SCH (13:08)
[2021-08-14 15:48] VITALS: BP 103/61
--- NOTE | 2021-08-14 19:20 | NUR ---
Patient resting in bed. AOx1. On room air. No signs of acute distress. Patient compliant with medications and care. No disruptive or aggressive behavior. IV access patent and intact. Bed alarm on for safety. Frequent patient rounding for safety. Will endorse to incoming shift for continuity of care.
--- NOTE | 2021-08-14 19:35 | NUR ---
Received patient lying in bed with HOB elevated, IV on both right and left hand intact and patent, on room air saturating at 96%, patient is non-verbal. No acute distress at this time. Call lights within reach, bed alarm on, safety measures initiated.
[2021-08-14 20:15] VITALS: BP 112/53
[2021-08-14] MEDS: Z GUARD REMEDY PASTE 57 GM TUBE TOP PRN ×2 (20:51→21:01)
[2021-08-14] MEDS: IV 1/2NS 1000 ML 1,000 ML IV PRN (21:41)
[2021-08-15 04:15] VITALS: BP 133/71
[2021-08-15] MEDS: PIPERACILLIN SODIUM/TAZOBACTAM 3.375 G in IV DEXTROSE 5% 100 ML IV SCH ×3 (05:08→22:02)
--- NOTE | 2021-08-15 06:20 | NUR ---
Patient slept poorly throughout the night, on room air saturating at 94%, HOB elevated, patient is non-verbal but can express her needs, no acute distress at this time, antibiotics given and tolerated well, call lights within reach, safety measures maintained throughout the night. Will endorse to am shift.
[2021-08-15 06:41] LABS: HEMATOCRIT 36.9 % (31.2-41.9); MEAN CORPUSCULAR HEMOGLOBIN 31.9 uug (24.7-32.8); MEAN CORPUSCULAR VOLUME 96.3 fL (75.5-95.3); PLATELET COUNT (AUTO) 409 K/uL (179-408)
[2021-08-15] MEDS: THIAMINE HCL 100 MG TABLET PO SCH (08:31)
[2021-08-15] MEDS: PANTOPRAZOLE SODIUM 40 MG VIAL IV SCH (08:31)
[2021-08-15] MEDS: BENZTROPINE MESYLATE 0.5 MG TABLET PO SCH ×3 (08:31→16:30)
[2021-08-15] MEDS: risperiDONE 0.5 MG TABLET PO SCH ×3 (08:31→16:30)
[2021-08-15] MEDS: Z GUARD REMEDY PASTE 57 GM TUBE TOP SCH ×2 (08:32→22:04)
[2021-08-15] MEDS: ENSURE ENLIVE (VAN) 240 ML LIQUID PO SCH ×3 (08:32→18:06)
[2021-08-15] MEDS: IV 1/2NS 1000 ML 1,000 ML IV PRN (11:36)
[2021-08-15 11:42] VITALS: BP 108/66
[2021-08-15] MEDS: ENOXAPARIN SODIUM 40 MG/0.4 ML DISP.SYRIN SQ SCH (13:00)
--- NOTE | 2021-08-15 15:29 | NUR ---
patient picked up for catscan of abdomen and pelvis.
[2021-08-15 16:00] VITALS: BP 102/84
[2021-08-15 20:20] VITALS: BP 120/66
--- NOTE | 2021-08-15 22:37 | NUR ---
patient incontinent of urine, changed and repositioned, barrier cream applied per order plan of care initiated; continue to monitor.
--- NOTE | 2021-08-16 01:30 | NUR ---
PIV in right arm infiltrated and hematoma formed. Catheter removed, arm elevated and ice applied.plan of care initiated; continue to monitor.
[2021-08-16] MEDS: IV 1/2NS 1000 ML 1,000 ML IV PRN ×3 (01:45→21:21)
[2021-08-16 04:10] VITALS: BP 140/52
[2021-08-16] MEDS: PIPERACILLIN SODIUM/TAZOBACTAM 3.375 G in IV DEXTROSE 5% 100 ML IV SCH ×3 (05:53→22:31)
[2021-08-16 07:43] LABS: CREATININE 0.9 mg/dL (0.6-1.3); POTASSIUM 3.7 mmol/L (3.5-5.1)
[2021-08-16 07:45] LABS: HEMATOCRIT 35.8 % (31.2-41.9); MEAN CORPUSCULAR VOLUME 95.9 fL (75.5-95.3); PLATELET COUNT (AUTO) 517 K/uL (179-408)
[2021-08-16] MEDS: PANTOPRAZOLE SODIUM 40 MG VIAL IV SCH (08:03)
[2021-08-16] MEDS: BENZTROPINE MESYLATE 0.5 MG TABLET PO SCH ×3 (08:04→16:23)
[2021-08-16] MEDS: risperiDONE 0.5 MG TABLET PO SCH ×3 (08:04→16:23)
[2021-08-16] MEDS: THIAMINE HCL 100 MG TABLET PO SCH (08:04)
[2021-08-16] MEDS: ENSURE ENLIVE (VAN) 240 ML LIQUID PO SCH (09:12)
[2021-08-16] MEDS: Z GUARD REMEDY PASTE 57 GM TUBE TOP SCH ×2 (09:12→22:31)
[2021-08-16 11:42] VITALS: BP 128/70
[2021-08-16] MEDS: GLUCERNA SHAKE VANILLA 237 ML CAN PO SCH ×2 (13:15→16:23)
--- NOTE | 2021-08-16 15:27 | NUR ---
pt abdomen noted distended bladder scan done 1770 ml urine noted md made aware per md orders folly catheter inserted
[2021-08-16 15:44] LABS: *BILIRUBIN,URIN NEGATIVE (NEGATIVE); *BLOOD, URINE NEGATIVE (NEGATIVE); *CLARITY,URINE CLEAR (CLEAR); *COLOR,URINE YELLOW (YELLOW); *KETONES,URINE NEGATIVE (NEGATIVE); *UROBILINOGEN,URINE 0.2 E.U./dl (NORMAL); LEUKOCYTE ESTERASE ,URINE TRACE (NEGATIVE); NITRITE, URINE NEGATIVE (NEGATIVE); PH,URINE 6.5 (5.0-8.0); UGLUCOSE NEGATIVE (NEGATIVE)
[2021-08-16 15:46] LABS: RBC,URINE 0-3 /HPF (0-3); WBC,URINE 0-3 /HPF (0-3)
[2021-08-16 16:00] VITALS: BP 107/49
[2021-08-16] MEDS: CLOTRIMAZOLE 1% CREAM 30 GM TUBE TOP SCH (16:23)
--- NOTE | 2021-08-16 19:36 | NUR ---
patient asleep, no sign of distress
[2021-08-16 20:10] VITALS: BP 99/52
[2021-08-17] MEDS: IV 1/2NS 1000 ML 1,000 ML IV PRN ×2 (03:46→20:58)
[2021-08-17 04:30] VITALS: BP 114/67
--- NOTE | 2021-08-17 05:50 | NUR ---
NOTIFIED BOILER MECHANIC VIA TEXTED MESSAGE, WHEN HE RESPONSES I WILL NOTIFIED FLOOR NURSE FOR TRANSPORTATION ETC.
--- NOTE | 2021-08-17 06:30 | NUR ---
Patient alert, oriented to name only. requesting a drink of water. patient was assisted by staff. continues to have jerking motions, patient is aware but unable to conjtrol the movement. she is easily startled and that seems to increase the flailing. will monitor closely
[2021-08-17 06:53] LABS: HEMATOCRIT 34.2 % (31.2-41.9); MEAN CORPUSCULAR HEMOGLOBIN 31.8 uug (24.7-32.8); MEAN CORPUSCULAR VOLUME 95.3 fL (75.5-95.3); PLATELET COUNT (AUTO) 487 K/uL (179-408)
[2021-08-17 06:59] LABS: CREATININE 0.9 mg/dL (0.6-1.3); POTASSIUM 3.8 mmol/L (3.5-5.1)
[2021-08-17] MEDS: LORAZEPAM 0.5 MG TABLET PO PRN ×3 (08:15→13:42)
[2021-08-17] MEDS: PANTOPRAZOLE SODIUM 40 MG VIAL IV SCH (08:50)
[2021-08-17] MEDS: THIAMINE HCL 100 MG TABLET PO SCH (08:50)
[2021-08-17] MEDS: BENZTROPINE MESYLATE 0.5 MG TABLET PO SCH ×3 (08:50→16:15)
[2021-08-17] MEDS: GLUCERNA SHAKE VANILLA 237 ML CAN PO SCH ×3 (08:51→16:15)
[2021-08-17] MEDS: CLOTRIMAZOLE 1% CREAM 30 GM TUBE TOP SCH ×2 (08:51→16:06)
[2021-08-17] MEDS: Z GUARD REMEDY PASTE 57 GM TUBE TOP SCH ×2 (08:52→20:56)
[2021-08-17] MEDS ORDERED: risperiDONE 0.5 MG TABLET PO PRN (09:00)
[2021-08-17] MEDS: risperiDONE 0.5 MG TABLET PO SCH ×3 (09:30→16:15)
[2021-08-17 11:22] VITALS: BP 141/54
[2021-08-17] MEDS ORDERED: LACTULOSE 20 G/30 ML LIQUID UDC PO ONE (12:15)
[2021-08-17] MEDS ORDERED: LORAZEPAM 2 MG/1 ML VIAL IV PRN (14:00)
[2021-08-17 15:37] VITALS: BP 110/65
--- NOTE | 2021-08-17 16:09 | NUR ---
down to radiology for lumbar puncture. she was not cooperative medicated with ativan 0.5mg po prior to going down. 1mg iv given in radiology dept. she was still combative and the radiologist was unable to get the procedure done. now lying in bed does not follow commands and still gittery. she will go for mri tomorrow at 12n ambulance to pick her up at 1130.
--- NOTE | 2021-08-17 19:30 | NUR ---
Received patient asleep on bed, difficult to arouse. Mumbling incoherently. Currently on room air, saturating at 94% with no visible signs of shortness of breath or chest pain. IV on left forearm running 0.45% NS at 75cc/hr. With tse catheter draining clear yellow urine. Safety measure and isolation precaution initiated. Bed in locked, alarm activated and call light button within reach. Will continue to monitor.
[2021-08-17 20:09] VITALS: BP 102/75
[2021-08-17] MEDS: SENNOSIDES 1 TABLET PO SCH (20:40)
[2021-08-18 04:31] VITALS: BP 127/71
--- NOTE | 2021-08-18 06:31 | NUR ---
Patient slept through the night. Patient is oriented to self, but not to time or place. Reoriented patient to time and place. No acute distress noted at this time. IV on left forearm running 0.45% NS at 75cc/hr. All due medications were given as ordered. Safety measures and aspiration precautions were maintained. Will endorse to AM shift.
[2021-08-18] MEDS: THIAMINE HCL 100 MG TABLET PO SCH (08:01)
[2021-08-18] MEDS: risperiDONE 0.5 MG TABLET PO SCH ×3 (08:01→16:38)
[2021-08-18] MEDS: BENZTROPINE MESYLATE 0.5 MG TABLET PO SCH ×3 (08:01→16:38)
[2021-08-18] MEDS: GLUCERNA SHAKE VANILLA 237 ML CAN PO SCH ×3 (08:02→16:38)
[2021-08-18] MEDS ORDERED: LORAZEPAM 2 MG/1 ML VIAL IV PRN (08:15)
[2021-08-18] MEDS: PANTOPRAZOLE SODIUM 40 MG VIAL IV SCH (08:20)
[2021-08-18] MEDS: MIRALAX 17 GM POWD.PACK PO SCH (08:37)
[2021-08-18] MEDS: Z GUARD REMEDY PASTE 57 GM TUBE TOP SCH ×2 (08:38→20:02)
[2021-08-18] MEDS: CLOTRIMAZOLE 1% CREAM 30 GM TUBE TOP SCH ×2 (08:38→16:39)
[2021-08-18] MEDS: IV 1/2NS 1000 ML 1,000 ML IV PRN (10:06)
[2021-08-18] MEDS ORDERED: GADOTERATE MEGLUMINE 5 MMOL/10 ML VIAL IV ONE (10:46)
--- NOTE | 2021-08-18 11:10 | NUR ---
pt went to [facility] for mri by ambulances
[2021-08-18 11:53] VITALS: BP 124/89
--- NOTE | 2021-08-18 13:04 | NUR ---
pt is back from mri via ambulances in stable condition
[2021-08-18 16:16] VITALS: BP 121/56
[2021-08-18] MEDS: SENNOSIDES 1 TABLET PO SCH (20:02)
[2021-08-18 20:10] VITALS: BP 104/61
[2021-08-19] MEDS: IV 1/2NS 1000 ML 1,000 ML IV PRN ×2 (01:24→14:53)
[2021-08-19 04:06] VITALS: BP 110/65
[2021-08-19 07:34] LABS: HEMATOCRIT 35.2 % (31.2-41.9); MEAN CORPUSCULAR VOLUME 95.1 fL (75.5-95.3); PLATELET COUNT (AUTO) 692 K/uL (179-408)
[2021-08-19 07:53] LABS: CREATININE 0.8 mg/dL (0.6-1.3); MAGNESIUM 1.8 mg/dL (1.8-2.4); PHOSPHOROUS 3.6 mg/dL (2.5-4.9); POTASSIUM 4.2 mmol/L (3.5-5.1)
[2021-08-19] MEDS: PANTOPRAZOLE SODIUM 40 MG VIAL IV SCH (08:02)
[2021-08-19] MEDS: MIRALAX 17 GM POWD.PACK PO SCH (08:02)
[2021-08-19] MEDS: risperiDONE 0.5 MG TABLET PO SCH ×3 (08:02→16:13)
[2021-08-19] MEDS: BENZTROPINE MESYLATE 0.5 MG TABLET PO SCH ×3 (08:03→16:12)
[2021-08-19] MEDS: GLUCERNA SHAKE VANILLA 237 ML CAN PO SCH ×3 (08:03→17:00)
[2021-08-19] MEDS: Z GUARD REMEDY PASTE 57 GM TUBE TOP SCH ×2 (08:03→20:59)
[2021-08-19] MEDS: THIAMINE HCL 100 MG TABLET PO SCH (08:03)
[2021-08-19] MEDS: CLOTRIMAZOLE 1% CREAM 30 GM TUBE TOP SCH ×2 (08:03→17:00)
[2021-08-19] MEDS ORDERED: LORAZEPAM 2 MG/1 ML VIAL IV PRN (09:45)
[2021-08-19] MEDS ORDERED: LORAZEPAM 2 MG/1 ML VIAL IV STA (09:47)
[2021-08-19 10:14] LABS: EOSINOPHILS % (MANUAL) 3 % (0-8); LYMPHOCYTES % (MANUAL) 17 % (20-40); MONOCYTES % (MANUAL) 7 % (2-10); NEUTROPHILS % (MANUAL) 73 % (42-75)
[2021-08-19] MEDS ORDERED: LIDOCAINE HCL 2% 20 ML VIAL IJ ONE (10:30)
[2021-08-19] MEDS: ASPIRIN EC 81 MG TABLET.DR PO SCH (11:07)
[2021-08-19 14:07] LABS: CSF GLUCOSE 50 mg/dL (40-70); CSF PROTEIN 70 mg/dL (15-45)
[2021-08-19 16:12] VITALS: BP 108/61
--- NOTE | 2021-08-19 18:44 | NUR ---
Patient resting in bed. AOx1. On room air. No signs of acute distress. IV access patent and intact. Singh catheter draining clear, yellow urine. Compliant with medications and care. No aggressive or disruptive behavior noted. Needs anticipated and met. Bed locked and in low position for safety. Will endorse to incoming shift for continuity of care.
--- NOTE | 2021-08-19 19:30 | NUR ---
RECEIVED PT AWAKE, ALERT AND ORIENTED X1. PT IN NO ACUTE DISTRESS. IV INTACT. GALAN CATHETER INTACT AND DRAINING WELL. PT ON ROOM AIR. SAFETY AND COMFORT PROVIDED. WILL CONTINUE TO MONITOR.
[2021-08-19 20:12] VITALS: BP 113/59
[2021-08-19] MEDS: SENNOSIDES 1 TABLET PO SCH (20:58)
[2021-08-19] MEDS: ATORVASTATIN 20 MG TABLET PO SCH (20:59)
[2021-08-19] MEDS: ACETAMINOPHEN 325 MG TABLET PO PRN (20:59)
[2021-08-20] MEDS: IV 1/2NS 1000 ML 1,000 ML IV PRN (03:59)
[2021-08-20 04:18] VITALS: BP 118/88
--- NOTE | 2021-08-20 06:12 | NUR ---
PT SLEPT COMFORTABLY. PT IN NO ACUTE DISTRESS. PRESCRIBED MEDICATION GIVEN AND PT TOLERATED IT WELL. PT TURNED AND REPOSITIONED.PT NEEDS REORIENTATION. PT STABLE. VITAL SIGNS WITHIN NORMAL LIMIT. SAFETY AND COMFORT PROVIDED. WILL ENDORSE TO INCOMING NURSE FOR CONTINUITY OF CARE.
[2021-08-20 07:27] LABS: HEMATOCRIT 36.6 % (31.2-41.9); MEAN CORPUSCULAR HEMOGLOBIN 31.7 uug (24.7-32.8); MEAN CORPUSCULAR VOLUME 95.4 fL (75.5-95.3); PLATELET COUNT (AUTO) 728 K/uL (179-408)
[2021-08-20 07:49] LABS: CREATININE 0.9 mg/dL (0.6-1.3); MAGNESIUM 2.1 mg/dL (1.8-2.4); PHOSPHOROUS 3.6 mg/dL (2.5-4.9); POTASSIUM 4.3 mmol/L (3.5-5.1)
[2021-08-20] MEDS: risperiDONE 0.5 MG TABLET PO SCH ×3 (08:29→17:41)
[2021-08-20] MEDS: ASPIRIN EC 81 MG TABLET.DR PO SCH (08:29)
[2021-08-20] MEDS: THIAMINE HCL 100 MG TABLET PO SCH (08:29)
[2021-08-20] MEDS: BENZTROPINE MESYLATE 0.5 MG TABLET PO SCH ×3 (08:29→17:41)
[2021-08-20] MEDS: PANTOPRAZOLE SODIUM 40 MG VIAL IV SCH (08:29)
[2021-08-20] MEDS: MIRALAX 17 GM POWD.PACK PO SCH (08:30)
[2021-08-20] MEDS: GLUCERNA SHAKE VANILLA 237 ML CAN PO SCH ×3 (08:31→17:41)
[2021-08-20] MEDS: CLOTRIMAZOLE 1% CREAM 30 GM TUBE TOP SCH ×2 (08:31→17:42)
[2021-08-20] MEDS: Z GUARD REMEDY PASTE 57 GM TUBE TOP SCH ×2 (08:31→20:32)
--- NOTE | 2021-08-20 09:00 | NUR ---
awake but confused, seen by PT- see notes, repositioned for breakfast and fed by PROOF CLERK- aspiration precautions observed, no coughing noted, safety measures maintained
[2021-08-20 11:28] VITALS: BP 109/46
[2021-08-20 15:58] VITALS: BP 106/51
--- NOTE | 2021-08-20 18:58 | NUR ---
no distress noted, repositioned for comfort, all needs attended and met, bed alarm on
--- NOTE | 2021-08-20 20:00 | NUR ---
Received patient lying in bed. Asleep at this time. Arouse to tactile stimuli. Appears calm and comfortable. In no apparent distress. No signs or symptoms of pain or SOB. IV site on left FA and right FA intact and patent. Needs assessed and anticipated to. Safety measure initiated and call light within reached.
[2021-08-20 20:15] VITALS: BP 115/50
[2021-08-20] MEDS: ATORVASTATIN 20 MG TABLET PO SCH (20:31)
[2021-08-20] MEDS: SENNOSIDES 1 TABLET PO SCH (20:32)
[2021-08-21 04:10] VITALS: BP 114/62
--- NOTE | 2021-08-21 05:17 | NUR ---
Pt asleep through out the night. Arouse to tactile stimuli. Confused and disoriented. In no apparent distress. IV site on right FA and left FA remains intact and patent. Singh catheter intact and draining via gravity. Turn and reposition for comfort. Needs anticipated to and met. Safety measure maintained and call light within reached.
[2021-08-21 07:38] LABS: CREATININE 0.9 mg/dL (0.6-1.3); MAGNESIUM 1.9 mg/dL (1.8-2.4); PHOSPHOROUS 3.7 mg/dL (2.5-4.9); POTASSIUM 4.2 mmol/L (3.5-5.1)
[2021-08-21 07:39] LABS: HEMATOCRIT 36.2 % (31.2-41.9); MEAN CORPUSCULAR HEMOGLOBIN 31.4 uug (24.7-32.8); MEAN CORPUSCULAR VOLUME 94.3 fL (75.5-95.3); PLATELET COUNT (AUTO) 741 K/uL (179-408)
--- NOTE | 2021-08-21 08:20 | NUR ---
awakened for breakfast and assessment. confused, no jerky movements noted, on room air, no shortness of breath, needs attended and met, bed alarm on
[2021-08-21] MEDS: BENZTROPINE MESYLATE 0.5 MG TABLET PO SCH ×2 (08:22→12:48)
[2021-08-21] MEDS: PANTOPRAZOLE SODIUM 40 MG VIAL IV SCH (08:22)
[2021-08-21] MEDS: ASPIRIN EC 81 MG TABLET.DR PO SCH (08:22)
[2021-08-21] MEDS: MIRALAX 17 GM POWD.PACK PO SCH (08:23)
[2021-08-21] MEDS: CLOTRIMAZOLE 1% CREAM 30 GM TUBE TOP SCH (08:26)
[2021-08-21] MEDS: risperiDONE 0.5 MG TABLET PO SCH ×2 (08:26→12:48)
[2021-08-21] MEDS: Z GUARD REMEDY PASTE 57 GM TUBE TOP SCH (08:27)
[2021-08-21] MEDS: THIAMINE HCL 100 MG TABLET PO SCH (08:27)
[2021-08-21] MEDS: GLUCERNA SHAKE VANILLA 237 ML CAN PO SCH ×2 (08:41→12:49)
[2021-08-21] MEDS ORDERED: RISP0.5T5 PO ×2 (10:56)
[2021-08-21] MEDS ORDERED: ATOR20TA PO (10:56)
[2021-08-21] MEDS ORDERED: ASPI-618 PO (10:56)
[2021-08-21] MEDS ORDERED: BENZ0.5T43 PO (10:56)
[2021-08-21 12:00] VITALS: BP 112/56
--- NOTE | 2021-08-21 13:00 | NUR ---
fed and ate good- aspiration precautions observed, for d/c today to board and care
--- NOTE | 2021-08-21 15:00 | NUR ---
discharge instructions done including last time medications given- to be given to the board and care
--- NOTE | 2021-08-21 15:20 | NUR ---
ambulance here- report given, saline lock x2 removed- no swelling/redness on site- ID bracelet removed, taken by ambulance per kelly with papers/prescriptions in stable condition
[2021-08-22 20:06] LABS: *HSV 1/2 PCR 1DNA CSF Negative (Negative); *HSV 1/2 PCR 2DNA CSF Negative (Negative)
== END 2021-08-21 15:20 | disposition home health service (06) | DRG 64 ==
LOC: MEDSURG3 13:24
PROVIDERS: ADMIT Nurse Practitioner Family; ATTEND Nurse Practitioner Acute Care
PROC: 009U3ZX Drainage of Spinal Canal, Percutaneous Approach, Diagnostic (ICD-10-PCS; principal; 2021-08-19)
DX: I63.9 Cerebral infarction, unspecified (principal); J69.0 Pneumonitis due to inhalation of food and vomit; G93.41 Metabolic encephalopathy; N39.0 Urinary tract infection, site not specified; G91.9 Hydrocephalus, unspecified; N17.9 Acute kidney failure, unspecified; B95.2 Enterococcus as the cause of diseases classified elsewhere; D72.829 Elevated white blood cell count, unspecified; F25.0 Schizoaffective disorder, bipolar type; R79.89 Other specified abnormal findings of blood chemistry; F03.90 Unspecified dementia, unspecified severity, without behavioral disturbance, psychotic disturbance, mood disturbance, and anxiety; I70.8 Atherosclerosis of other arteries; K59.00 Constipation, unspecified; N26.1 Atrophy of kidney (terminal); Z79.82 Long term (current) use of aspirin; Z90.81 Acquired absence of spleen; G89.29 Other chronic pain; M54.9 Dorsalgia, unspecified; Z20.822 Contact with and (suspected) exposure to COVID-19; R33.9 Retention of urine, unspecified; B95.5 Unspecified streptococcus as the cause of diseases classified elsewhere; R41.89 Other symptoms and signs involving cognitive functions and awareness
CPT/HCPCS: 36415; 62270; 70030-TC; 70553; 83735; 84100; 84157; 85025; 85610; 86140; 87040; 87077; 87086; 87205; 87400; 89051; 93307; 95819; 97161; A4663; A6209; A9575; C1758; C9113; G0378; J1650; J2060; J2543; J3490; J7030; J7050; J7060